=== PATIENT | female | born 1935 | race Two or more races ===

== ENCOUNTER 2022-12-17 18:14 | Inpatient (IN) | payer OTHER ==
[~2022-12-17] VITALS: Ht 142.2 cm; Wt 42.2 kg
[~2022-12-17 18:14] MED LIST: GABA-529 PO; GLIP5TAB12 PO; LOSA100T4 PO; METF-416 PO; SITA100T11 PO
[2022-12-17] MEDS ORDERED: SODIUM CHLORIDE 0.9% 1,000 ML IV ONE (19:15)
[2022-12-17 19:28] LABS: CHLORIDE 103 mEq/L (98-107)
[2022-12-17 19:30] LABS: MEAN CORPUSCULAR HEMOGLOBIN 38.8 pg (28.0-32.0); MEAN CORPUSCULAR VOLUME 119.8 fL (81.0-99.0); PLATELET 113 x1000/uL (130-400); RED BLOOD CELL COUNT 1.17 mill/uL (4.2-5.4); RED CELL DISTRIBUTION WIDTH 17.5 % (11.6-14.6)
[2022-12-17 19:37] LABS: BETA HYDROXYBUTYRATE 0.3 mMol/L (0.0-0.3)
[2022-12-17 19:45] LABS: HEMOGLOBIN. 4.5 g/dL (12.0-16.0)
[2022-12-17 21:31] LABS: CHLORIDE 104 mEq/L (98-107)
[2022-12-17] MEDS ORDERED: FUROSEMIDE 20MG/2ML VIAL IVP ONE (22:15)
[2022-12-17 23:40] LABS: CLARITY URINE CLOUDY (CLEAR); COLOR URINE YELLOW (YELLOW); KETONES URINE TRACE (NEGATIVE); LEUKOCYTE ESTERASE URINE NEGATIVE (NEGATIVE); NITRITE URINE NEGATIVE (NEGATIVE); OCCULT BLOOD URINE NEGATIVE (NEGATIVE); PROTEIN URINE TRACE (NEGATIVE); SPECIFIC GRAVITY URINE 1.009 (1.005-1.030)
[2022-12-17 23:46] LABS: NUCLEATED RED BLOOD CELLS 1 /100 WBC; PLATELET ESTIMATE DECREASED
[2022-12-18] MEDS ORDERED: HYDRALAZINE 20MG/ML VIAL IV NR (00:45)
[2022-12-18] MEDS ORDERED: DEXTROSE 50% WATER 50ML SYRINGE IV PRN (00:45)
[2022-12-18] MEDS: INSULIN LISPRO 100 UNITS/ML SUBCUT SCH ×5 (00:57→20:49)
[2022-12-18 01:00] LABS: HEMATOCRIT 24.7 % (36.0-48.0); HEMOGLOBIN 8.3 g/dL (12.0-16.0); MEAN CORPUSCULAR VOLUME 104.4 fL (81.0-99.0); PLATELET 124 x1000/uL (130-400); RED BLOOD CELL COUNT 2.37 mill/uL (4.2-5.4)
[2022-12-18] MEDS ORDERED: FUROSEMIDE 40MG/4ML VIAL IVP SCH (01:00)
[2022-12-18 01:08] LABS: CHLORIDE 104 mEq/L (98-107)
[2022-12-18] MEDS ORDERED: NITROGLYCERIN 0.4MG TABLET SL SL PRN (01:15)
[2022-12-18] MEDS ORDERED: MAGNESIUM/ALUMINUM HYDROXIDE/SIMETHICONE 30ML UDC PO PRN (01:30)
[2022-12-18] MEDS ORDERED: ONDANSETRON HCL 4MG/2ML INJ IV PRN (01:30)
[2022-12-18] MEDS ORDERED: GUAIFENESIN 200MG/10ML SUGAR FREE UDC PO PRN (01:30)
[2022-12-18] MEDS ORDERED: CLONIDINE 0.1MG TABLET PO PRN (01:30)
[2022-12-18] MEDS ORDERED: ACETAMINOPHEN 325MG TABLET PO PRN ×2 (01:30)
[2022-12-18] MEDS ORDERED: HYDROCODONE/ACETAMINOPHEN 5/325MG TABLET PO PRN (01:30)
[2022-12-18] MEDS ORDERED: IPRATROPIUM/ALBUTEROL 0.5-3(2.5)MG/3ML NEB HHN PRN (01:30)
[2022-12-18] MEDS ORDERED: DOCUSATE SODIUM 100MG CAPSULE PO PRN (01:30)
[2022-12-18] MEDS ORDERED: ASPIRIN 325MG EC TABLET PO NR (02:00)
[2022-12-18 02:34] LABS: CREATINE KINASE MB FRACTION 1.1 ng/mL (0.5-3.6)
[2022-12-18] MEDS ORDERED: IOHEXOL-300 100 ML BOTTLE ONE (03:45)
[2022-12-18 04:53] LABS: CLARITY URINE CLOUDY (CLEAR); COLOR URINE YELLOW (YELLOW); KETONES URINE NEGATIVE (NEGATIVE); LEUKOCYTE ESTERASE URINE 1+ (NEGATIVE); NITRITE URINE NEGATIVE (NEGATIVE); OCCULT BLOOD URINE NEGATIVE (NEGATIVE); PH URINE 5.5 (4.5-8.0); PROTEIN URINE NEGATIVE (NEGATIVE); SPECIFIC GRAVITY URINE 1.011 (1.005-1.030); UROBILINOGEN URINE 0.2 E.U./dL (0.2-1.0)
[2022-12-18] MEDS ORDERED: POTASSIUM CHLORIDE INJ 40 MEQ in DEXT 5% WATER 250 ML IV ONE (05:45)
[2022-12-18] MEDS: KCL 20MEQ/100ML X 2 FOR TOTAL KCL 40MEQ/200ML IV SCH ×2 (06:05→12:14)
[2022-12-18] MEDS: BLOOD SUGAR DIAGNOSTIC STRIP TEST SCH ×4 (06:40→20:39)
[2022-12-18] MEDS ORDERED: INSULIN LISPRO 100 UNITS/ML SUBCUT SCH (07:00)
[2022-12-18] MEDS ORDERED: CEFTRIAXONE 1GM PREMIX 50 ML IV SCH (07:30)
[2022-12-18 09:30] VITALS: BP 121/60
[2022-12-18 09:45] VITALS: BP 121/60
[2022-12-18 10:00] LABS: TOTAL IRON BINDING CAPACITY 221 ug/dL (250-450)
[2022-12-18] MEDS: PANTOPRAZOLE SODIUM 40 MG/VIAL IV SCH (10:18)
[2022-12-18] MEDS: FUROSEMIDE 40MG/4ML VIAL IV SCH ×2 (10:19→18:14)
[2022-12-18] MEDS: ASPIRIN 81MG EC TABLET PO SCH (10:19)
[2022-12-18] MEDS: LOSARTAN POTASSIUM 100 MG TABLET PO SCH (10:19)
[2022-12-18 10:26] LABS: VITAMIN B12 SERUM > 2000.0 pg/mL (211-911)
[2022-12-18 12:00] VITALS: BP 143/53
[2022-12-18] MEDS ORDERED: LACTULOSE 20G/30ML UDC PO NR (12:30)
[2022-12-18] MEDS: CEFTRIAXONE 1,000 MG in DEXTROSE 5% WATER 50 ML IV SCH (13:02)
[2022-12-18 16:00] VITALS: BP 110/53
[2022-12-18] MEDS ORDERED: AMIO100T4 PO (16:57)
[2022-12-18] MEDS ORDERED: HYDR12.54 PO (16:57)
[2022-12-18] MEDS ORDERED: ATOR20TA65 PO (16:57)
[2022-12-18] MEDS ORDERED: ATOR20TA65 MT (16:57)
[2022-12-18] MEDS ORDERED: AMLO5TAB88 PO (16:57)
[2022-12-18] MEDS ORDERED: METO-411 PO (16:57)
[2022-12-18] MEDS ORDERED: FAMO20TA8 PO (16:57)
[2022-12-18] MEDS ORDERED: XAR15 MT (16:57)
[2022-12-18] MEDS ORDERED: ISOS30TA12 MT (16:57)
[2022-12-18] MEDS ORDERED: NALOXONE HCL 0.4MG/ML VIAL IV PRN (18:00)
[2022-12-18 19:50] LABS: INR 1.2; PROTHROMBIN TIME 13.2 sec (9.6-11.0)
[2022-12-18 20:00] VITALS: BP 120/51
[2022-12-18] MEDS: INSULIN GLARGINE 100 UNITS/ML SUBCUT SCH (21:47)
[2022-12-19] VITALS (11 sets, daily range): BP systolic 94–134; BP diastolic 43–65
[2022-12-19 05:36] LABS: HEMOGLOBIN. 7.2 g/dL (12.0-16.0); MEAN CORPUSCULAR VOLUME 100.5 fL (81.0-99.0); MEAN PLATELET VOLUME 8.3 fl (7.4-10.4); PLATELET 83 x1000/uL (130-400); RED BLOOD CELL COUNT 2.05 mill/uL (4.2-5.4); RED CELL DISTRIBUTION WIDTH 24.9 % (11.6-14.6)
[2022-12-19 05:42] LABS: HEMATOCRIT. 20.6 % (36.0-48.0)
[2022-12-19 06:03] LABS: CHLORIDE 105 mEq/L (98-107)
[2022-12-19 06:20] LABS: HDL CHOLESTEROL 22 mg/dL (40-59); LDL CHOLESTEROL 46 mg/dL (5-100); T4 FREE 1.23 ng/dL (0.76-1.46)
[2022-12-19] MEDS: INSULIN LISPRO 100 UNITS/ML SUBCUT SCH ×4 (06:24→22:00)
[2022-12-19] MEDS: BLOOD SUGAR DIAGNOSTIC STRIP TEST SCH ×4 (06:24→21:55)
[2022-12-19] MEDS ORDERED: POTASSIUM CHLORIDE 20MEQ TABLET SR PO NR ×2 (08:00→20:00)
[2022-12-19] MEDS: CEFTRIAXONE 1,000 MG in DEXTROSE 5% WATER 50 ML IV SCH (09:24)
[2022-12-19] MEDS: FUROSEMIDE 40MG/4ML VIAL IV SCH ×2 (09:25→21:55)
[2022-12-19] MEDS: LOSARTAN POTASSIUM 100 MG TABLET PO SCH (09:25)
[2022-12-19] MEDS: PANTOPRAZOLE SODIUM 40 MG/VIAL IV SCH (09:25)
[2022-12-19] MEDS ORDERED: MAGNESIUM 2 G PREMIX 50 ML IV NR (09:30)
[2022-12-19] MEDS: ASPIRIN 81MG EC TABLET PO SCH (09:44)
[2022-12-19] MEDS ORDERED: KCL 20MEQ/100ML PREMIX 100 ML IV NR (10:00)
[2022-12-19] MEDS ORDERED: MAGNESIUM 2 G PREMIX 50 ML IV SCH (11:45)
[2022-12-19] MEDS: INSULIN GLARGINE 100 UNITS/ML SUBCUT SCH (22:01)
[2022-12-19 23:41] LABS: HEMATOCRIT 27.5 % (36.0-48.0); HEMOGLOBIN 9.4 g/dL (12.0-16.0)
[2022-12-20] VITALS: BP 113/50
[2022-12-20 02:39] LABS: INR 1.1; PROTHROMBIN TIME 12.1 sec (9.6-11.0)
[2022-12-20 04:00] VITALS: BP 112/59
[2022-12-20 05:20] LABS: CHLORIDE 104 mEq/L (98-107)
[2022-12-20 05:33] LABS: PHOSPHORUS 2.4 mg/dL (2.5-4.9)
[2022-12-20 05:51] LABS: HEMATOCRIT. 26.5 % (36.0-48.0); HEMOGLOBIN. 9.1 g/dL (12.0-16.0); MEAN CORPUSCULAR HEMOGLOBIN 34.6 pg (28.0-32.0); MEAN CORPUSCULAR VOLUME 100.7 fL (81.0-99.0); MEAN PLATELET VOLUME 8.4 fl (7.4-10.4); PLATELET 80 x1000/uL (130-400); RED BLOOD CELL COUNT 2.63 mill/uL (4.2-5.4)
[2022-12-20] MEDS: INSULIN LISPRO 100 UNITS/ML SUBCUT SCH ×4 (06:23→21:50)
[2022-12-20] MEDS: BLOOD SUGAR DIAGNOSTIC STRIP TEST SCH ×4 (06:23→21:51)
[2022-12-20 07:58] LABS: PLATELET ESTIMATE DECREASED
[2022-12-20 08:00] VITALS: BP 111/51
[2022-12-20] MEDS: CEFTRIAXONE 1,000 MG in DEXTROSE 5% WATER 50 ML IV SCH (08:49)
[2022-12-20] MEDS: FUROSEMIDE 40MG/4ML VIAL IV SCH ×2 (08:49→18:41)
[2022-12-20] MEDS: PANTOPRAZOLE SODIUM 40 MG/VIAL IV SCH (08:50)
[2022-12-20] MEDS: SPIRONOLACTONE 25MG TABLET PO SCH (09:00)
[2022-12-20] MEDS: LOSARTAN POTASSIUM 100 MG TABLET PO SCH (09:00)
[2022-12-20] MEDS ORDERED: SODIUM PHOS,M-BASIC-D-BASIC 15 MM in DEXT 5% WATER 245 ML IV NR (10:30)
[2022-12-20] MEDS: METOCLOPRAMIDE HCL 10MG/2ML VIAL IV SCH ×4 (10:44→22:56)
[2022-12-20] MEDS: BISACODYL 5MG TABLET PO SCH ×4 (10:46→22:56)
[2022-12-20] MEDS: SORBITOL 70% SOLN 30ML PO SCH ×4 (11:26→22:56)
[2022-12-20 12:00] VITALS: BP 122/53
[2022-12-20 16:00] VITALS: BP 140/68
[2022-12-20] MEDS ORDERED: POTASSIUM CHLORIDE 20MEQ/PACKET PO NR (17:45)
[2022-12-20 20:00] VITALS: BP 127/55
[2022-12-20] MEDS: INSULIN GLARGINE 100 UNITS/ML SUBCUT SCH (21:51)
[2022-12-21] VITALS: BP 121/54
[2022-12-21] MEDS ORDERED: DEXT 5%/0.9% NACL 1,000 ML IV SCH
[2022-12-21 03:42] LABS: HEMATOCRIT. 31.4 % (36.0-48.0); HEMOGLOBIN. 10.7 g/dL (12.0-16.0); MEAN CORPUSCULAR HEMOGLOBIN 34.6 pg (28.0-32.0); MEAN CORPUSCULAR VOLUME 101.8 fL (81.0-99.0); MEAN PLATELET VOLUME 8.5 fl (7.4-10.4); PLATELET 92 x1000/uL (130-400); RED BLOOD CELL COUNT 3.08 mill/uL (4.2-5.4); RED CELL DISTRIBUTION WIDTH 21.1 % (11.6-14.6)
[2022-12-21 04:00] VITALS: BP 135/61
[2022-12-21 04:02] LABS: CHLORIDE 110 mEq/L (98-107)
[2022-12-21 04:12] LABS: PHOSPHORUS 5.8 mg/dL (2.5-4.9)
[2022-12-21 05:21] LABS: PLATELET ESTIMATE DECREASED
[2022-12-21 05:43] LABS: PLATELET ESTIMATE DECREASED
[2022-12-21] MEDS: BLOOD SUGAR DIAGNOSTIC STRIP TEST SCH ×4 (06:14→21:29)
[2022-12-21] MEDS: KCL 20MEQ/100ML X 2 FOR TOTAL KCL 40MEQ/200ML IV SCH ×2 (06:26→09:52)
[2022-12-21] MEDS ORDERED: POTASSIUM CHLORIDE INJ 40 MEQ in DEXT 5% WATER 250 ML IV ONE (06:30)
[2022-12-21] MEDS: INSULIN LISPRO 100 UNITS/ML SUBCUT SCH ×4 (06:32→21:21)
[2022-12-21 08:00] VITALS: BP 160/63
[2022-12-21] MEDS: SPIRONOLACTONE 25MG TABLET PO SCH (09:00)
[2022-12-21] MEDS: FUROSEMIDE 40MG/4ML VIAL IV SCH ×2 (09:00→16:48)
[2022-12-21] MEDS: LOSARTAN POTASSIUM 100 MG TABLET PO SCH (09:00)
[2022-12-21] MEDS: PANTOPRAZOLE SODIUM 40 MG/VIAL IV SCH (09:52)
[2022-12-21] MEDS: CEFTRIAXONE 1,000 MG in DEXTROSE 5% WATER 50 ML IV SCH (09:52)
[2022-12-21] MEDS ORDERED: HYDRALAZINE 20MG/ML VIAL IV NR (10:00)
[2022-12-21] MEDS ORDERED: SIMETHICONE 40 MG/0.6 ML 15ML ONE (10:41)
[2022-12-21 12:00] VITALS: BP 114/45
[2022-12-21] MEDS ORDERED: PROPOFOL 200MG/20ML VIAL IV ONE (12:47)
[2022-12-21 16:00] VITALS: BP 122/44
[2022-12-21 20:00] VITALS: BP 142/61
[2022-12-21] MEDS: INSULIN GLARGINE 100 UNITS/ML SUBCUT SCH (21:22)
[2022-12-22] VITALS: BP 131/58
[2022-12-22 04:00] VITALS: BP 110/71
[2022-12-22 06:59] LABS: HEMATOCRIT. 24.5 % (36.0-48.0); HEMOGLOBIN. 8.4 g/dL (12.0-16.0); MEAN CORPUSCULAR HEMOGLOBIN 34.7 pg (28.0-32.0); MEAN CORPUSCULAR VOLUME 101.9 fL (81.0-99.0); MEAN PLATELET VOLUME 8.2 fl (7.4-10.4); PLATELET 70 x1000/uL (130-400); RED BLOOD CELL COUNT 2.41 mill/uL (4.2-5.4); RED CELL DISTRIBUTION WIDTH 21.8 % (11.6-14.6)
[2022-12-22] MEDS: BLOOD SUGAR DIAGNOSTIC STRIP TEST SCH ×2 (07:04→11:40)
[2022-12-22] MEDS: INSULIN LISPRO 100 UNITS/ML SUBCUT SCH ×2 (07:05→12:10)
[2022-12-22 08:00] VITALS: BP 110/40
[2022-12-22 08:01] LABS: CHLORIDE 110 mEq/L (98-107)
[2022-12-22] MEDS: LOSARTAN POTASSIUM 100 MG TABLET PO SCH ×2 (09:00→09:06)
[2022-12-22] MEDS: SPIRONOLACTONE 25MG TABLET PO SCH ×2 (09:00→09:07)
[2022-12-22] MEDS: FUROSEMIDE 40MG/4ML VIAL IV SCH (09:06)
[2022-12-22] MEDS: PANTOPRAZOLE SODIUM 40 MG/VIAL IV SCH (09:06)
[2022-12-22] MEDS: CEFTRIAXONE 1,000 MG in DEXTROSE 5% WATER 50 ML IV SCH (09:08)
[2022-12-22] MEDS ORDERED: OMEP20CA14 MT (09:35)
[2022-12-22] MEDS ORDERED: POTASSIUM CHLORIDE 20MEQ/PACKET PO NR (09:45)
[2022-12-22 12:00] VITALS: BP 111/43
[2022-12-22 13:08] VITALS: BP 110/54
[2022-12-23 10:09] LABS: PLATELET ESTIMATE DECREASED
== END 2022-12-22 14:40 | disposition home or self-care (01) | DRG 720 ==
LOC: ER 18:14 → MICUSO 22:10 → EDBEDREQ 22:11 → 7EST 12-18 09:37
PROVIDERS: ADMIT Internal Medicine; ATTEND Internal Medicine
PROC: 30233N1 Transfusion of Nonautologous Red Blood Cells into Peripheral Vein, Percutaneous Approach (ICD-10-PCS; principal; 2022-12-17)
PROC: 0DB68ZX Excision of Stomach, Via Natural or Artificial Opening Endoscopic, Diagnostic (ICD-10-PCS; 2022-12-21)
PROC: 0DJD8ZZ Inspection of Lower Intestinal Tract, Via Natural or Artificial Opening Endoscopic (ICD-10-PCS; 2022-12-21)
DX: A41.50 Gram-negative sepsis, unspecified (principal); J96.01 Acute respiratory failure with hypoxia; I50.23 Acute on chronic systolic (congestive) heart failure; E43 Unspecified severe protein-calorie malnutrition; E87.0 Hyperosmolality and hypernatremia; I21.A1 Myocardial infarction type 2; E83.51 Hypocalcemia; D62 Acute posthemorrhagic anemia; E87.1 Hypo-osmolality and hyponatremia; I48.0 Paroxysmal atrial fibrillation; E88.09 Other disorders of plasma-protein metabolism, not elsewhere classified; Z20.822 Contact with and (suspected) exposure to COVID-19; N39.0 Urinary tract infection, site not specified; E78.5 Hyperlipidemia, unspecified; E87.6 Hypokalemia; E78.00 Pure hypercholesterolemia, unspecified; E11.65 Type 2 diabetes mellitus with hyperglycemia; I11.0 Hypertensive heart disease with heart failure; D53.9 Nutritional anemia, unspecified; I42.9 Cardiomyopathy, unspecified; N17.9 Acute kidney failure, unspecified; I16.0 Hypertensive urgency; I45.10 Unspecified right bundle-branch block; K29.00 Acute gastritis without bleeding; Z79.01 Long term (current) use of anticoagulants; Z79.4 Long term (current) use of insulin; Z79.82 Long term (current) use of aspirin; Z95.810 Presence of automatic (implantable) cardiac defibrillator; Z79.84 Long term (current) use of oral hypoglycemic drugs; Z79.899 Other long term (current) drug therapy; Z90.710 Acquired absence of both cervix and uterus
CPT/HCPCS: 36415; 71045; 74178; 76604; 80053; 80061; 81003; 82010; 82270; 82550; 82553; 82607; 82728; 82746; 82962; 83036; 83540; 83550; 83605; 83735; 83880; 84100; 84132; 84145; 84439; 84443; 84484; 85014; 85018; 85025; 85027; 85044; 85049; 85384; 85611; 86850; 86900; 86920; 87186; 87426; 88305; 93005; 93306; 93970; 99291; A6261; C9113; J0360; J0696; J1815; J1940; J2704; J2765; J3475; J3480; J3490; J7030; J7042; J7060; P9016; Q9967; A4315